=== PATIENT | male | born 1945 | race African-American/Black ===

== ENCOUNTER 2022-03-23 10:12 | Inpatient (IN) | payer MEDICARE, OTHER ==
[2022-03-23] MEDS ORDERED: Ipratropium/Albuterol 3 ML NEB ONE ×2 (11:05→11:22)
[2022-03-23] MEDS ORDERED: Magnesium 2 GM/50 ML BAG (IN WATER) ONE (11:09)
[2022-03-23] MEDS ORDERED: methylPREDNISolone Sod Succ/PF 125 MG/2 ML VIAL ONE (11:09)
[2022-03-23 11:53] LABS: #Basophils 0.1 10x3/uL (0.0-0.2); #Monocytes 0.8 10x3/uL (0.0-1.1); #Neutrophils 5.4 10x3/uL (1.5-8.4); %Basophils 0.7 % (0.0-2.0); %Eosinophils 0.3 % (0.0-6.0); %Lymphocytes 17.6 % (18.0-47.0); %Monocytes 10.4 % (0.0-10.0); %Neutrophils 70.5 % (40.0-75.0); Hemoglobin 13.6 g/dL (13.5-17.5); Mean Corpuscular HGB CONC 34.5 g/dL (32.0-36.0); Mean Corpuscular Hemoglobin 30.8 pg (27.0-33.0); Mean Corpuscular Volume 89.3 fl (81.2-95.1); Mean Platelet Volume 11.3 fl (7.4-10.4); Platelet Count 182 10x3/uL (150-450); RBC Distribution Width 13.3 % (11.5-14.5); Red Blood Cell (RBC) Count 4.41 10x6/uL (4.32-5.72); White Blood Cell (WBC) Count 7.7 10x3/uL (3.5-10.5)
[2022-03-23 12:04] LABS: ALT (SGPT) 11 U/L (8-55); AST (SGOT) 21 U/L (5-34); Albumin 4.5 g/dL (3.4-4.8); Alkaline Phosphatase 87 U/L (40-110); Anion Gap 21 mmol/L (10-20); BUN (Urea Nitrogen) 38 mg/dL (8.4-25.7); Bilirubin, Total 0.5 mg/dL (0.2-1.2); Calc. Creatinine Clearance 0 mL/min (70-130); Calcium 8.9 mg/dL (7.8-10.44); Carbon Dioxide 26 mmol/L (23-31); Chloride 95 mmol/L (98-107); Estimated GFR 11; Globulin 4.8 g/dL (2.4-3.5); Glucose 129 mg/dL (83-110); Potassium 4.9 mmol/L (3.5-5.1); Protein, Total 9.3 g/dL (5.8-8.1); Sodium 137 mmol/L (136-145)
[2022-03-23 12:23] LABS: CKMB 4.5 ng/mL (0-6.6)
[2022-03-23] MEDS ORDERED: cefTRIAXone\\ROCEPHIN 2 GM VIAL ONE (12:57)
[2022-03-23 13:08] LABS: SARS-CoV-2 NAA Rapid Test Not Detected (NotDetected)
[2022-03-23] MEDS ORDERED: Aspirin Chewable 81 MG TAB ONE (13:35)
[2022-03-23] MEDS ORDERED: Azithromycin 500 MG VIAL ONE (13:36)
[2022-03-23] MEDS ORDERED: HumaLOG 300 UNITS/3 ML VIAL SC PRN (14:16)
[2022-03-23] MEDS ORDERED: Nicotine 14 MG PATCH TD PRN (14:16)
[2022-03-23] MEDS ORDERED: Acetaminophen 325 MG TAB PO PRN (14:16)
[2022-03-23] MEDS ORDERED: Dextrose 5% in Water 1,000 ML IV PRN (14:16)
[2022-03-23] MEDS ORDERED: Dextrose 50% Abboject 50 ML SYRINGE SLOW IVP PRN (14:16)
[2022-03-23] MEDS ORDERED: Senokot S 8.6-50 MG TAB PO PRN (14:16)
[2022-03-23] MEDS ORDERED: Ondansetron ODT 4 MG TAB PO PRN (14:16)
[2022-03-23 14:58] LABS: Lactic Acid 3.8 mmol/L (0.5-2.2)
[2022-03-23 17:34] LABS: Actual Bicarbonate (HCO3v) 26 mEq/L (22-28); Chloride (VBG) 96 mmol/L (98-106); Hemoglobin (Hb) 13.5 g/dL (12.6-17.4); Potassium (VBG) 5.11 mmol/L (3.70-5.30); Puncture Site Other Site; RapidComm Collect By CBN; Sodium 133.7 mmol/L (133-146); pH (venous) 7.28 (7.32-7.43)
[2022-03-23] MEDS ORDERED: Furosemide 40 MG/4 ML VIAL ONE (17:59)
[2022-03-23] MEDS: Ipratropium/Albuterol 3 ML NEB NEB SCH (20:10)
[2022-03-23] MEDS: Furosemide 40 MG/4 ML VIAL SLOW IVP SCH (20:58)
[2022-03-23] MEDS: Heparin 5,000 UNITS/ML VIAL SC SCH ×2 (20:58→21:19)
[2022-03-23] MEDS: Famotidine 20 MG TAB PO SCH (21:18)
[2022-03-24] MEDS: methylPREDNISolone Sod Succ 40 MG VIAL IVP SCH ×5 (00:09→23:54)
[2022-03-24] MEDS: Ipratropium/Albuterol 3 ML NEB NEB SCH ×4 (01:10→19:50)
[2022-03-24 05:00] LABS: MDiff Complete? YES; Mean Corpuscular HGB CONC 34.5 g/dL (32.0-36.0); Mean Corpuscular Hemoglobin 30.4 pg (27.0-33.0); Mean Corpuscular Volume 88.1 fl (81.2-95.1); Mean Platelet Volume 11.3 fl (7.4-10.4); Platelet Count 162 10x3/uL (150-450); RBC Distribution Width 13.2 % (11.5-14.5); Red Blood Cell (RBC) Count 3.95 10x6/uL (4.32-5.72); White Blood Cell (WBC) Count 4.1 10x3/uL (3.5-10.5)
[2022-03-24 05:05] LABS: Anion Gap 19 mmol/L (10-20); BUN (Urea Nitrogen) 58 mg/dL (8.4-25.7); Calc. Creatinine Clearance 13 mL/min (70-130); Calcium 8.3 mg/dL (7.8-10.44); Carbon Dioxide 26 mmol/L (23-31); Chloride 97 mmol/L (98-107); Estimated GFR 8; Glucose 157 mg/dL (83-110); Magnesium 2.6 mg/dL (1.6-2.6); Potassium 5.4 mmol/L (3.5-5.1); Sodium 137 mmol/L (136-145)
[2022-03-24 05:23] LABS: Cardiac Risk 3.8 (Less than 4.5); Cholesterol 148 mg/dl (< 200 Desired); HDL Cholesterol 39 mg/dL (>60 Neg Risk); LDL Cholesterol, Calculated 93 mg/dL; Phosphorus 6.4 mg/dL (2.3-4.7); Triglycerides 80 mg/dL (Less than 150)
[2022-03-24 05:44] LABS: Band 6 % (5-11); Eosinophils 1 % (0-10); Lymphocytes 14 % (21-51); Monocytes 7 % (0-10); Neutrophil 71 % (42-75); Reactive Lymphocytes 1 % (0-10)
[2022-03-24 05:48] LABS: Anisocytosis SLIGHT = 6-15 cells (100X) (0-5/hpf); Macrocytosis SLIGHT = 6-15 cells (100X) (0-5/hpf); Microcytosis SLIGHT = 6-15 cells (100X) (0-5/hpf)
[2022-03-24 05:49] LABS: Giant Platelets SLIGHT; Platelet Morphology Comment Appears Adequate
[2022-03-24] MEDS: Furosemide 40 MG/4 ML VIAL SLOW IVP SCH ×2 (05:51→14:06)
[2022-03-24] MEDS ORDERED: Furosemide 40 MG/4 ML VIAL SLOW IVP SCH (06:00)
[2022-03-24] MEDS: Atorvastatin Calcium 20 MG TAB PO SCH (08:17)
[2022-03-24] MEDS: Lisinopril 5 MG TAB PO SCH (08:17)
[2022-03-24] MEDS: Heparin 5,000 UNITS/ML VIAL SC SCH ×3 (08:18→20:23)
[2022-03-24] MEDS ORDERED: FLU VACC QS2022-23(65YR UP)/PF 240 MCG/0.7 ML SYRINGE IM ONE (09:00)
[2022-03-24] MEDS: HumaLOG 300 UNITS/3 ML VIAL SC PRN (12:18)
[2022-03-24] MEDS: cefTRIAXone\\ROCEPHIN 1 GM in Sodium Chloride 0.9% 100 ML IVPB SCH (13:25)
[2022-03-24] MEDS: Azithromycin 500 MG in Sodium Chloride 0.9% 250 ML 250 ML IVPB SCH (14:06)
[2022-03-24 19:12] LABS: HBSAg Index 0.19 S/CO (0-0.99); Hep B Surf Ag Non-Reactive S/CO (NonReactive)
[2022-03-24] MEDS: Famotidine 20 MG TAB PO SCH (20:22)
[2022-03-24 23:35] LABS: HBSAB Concentration Less than 8.00 mIU/mL; Hep B Surf AB Non-Reactive (NonReactive); Hep C IgG Ab Non-Reactive (NonReactive)
[2022-03-25 01:37] LABS: Hep B Core Total Ab Reactive (NonReactive); Hep B Core Total Index 7.64 S/CO (0-0.79)
[2022-03-25] MEDS: Ipratropium/Albuterol 3 ML NEB NEB SCH ×4 (01:45→18:49)
[2022-03-25 04:29] LABS: Anion Gap 18 mmol/L (10-20); BUN (Urea Nitrogen) 60 mg/dL (8.4-25.7); Calc. Creatinine Clearance 13 mL/min (70-130); Calcium 8.2 mg/dL (7.8-10.44); Carbon Dioxide 26 mmol/L (23-31); Chloride 97 mmol/L (98-107); Estimated GFR 9; Glucose 166 mg/dL (83-110); Potassium 5.3 mmol/L (3.5-5.1); Sodium 136 mmol/L (136-145)
[2022-03-25 04:30] LABS: #Monocytes 0.3 10x3/uL (0.0-1.1); #Neutrophils 8.2 10x3/uL (1.5-8.4); %Basophils 0.2 % (0.0-2.0); %Lymphocytes 11.4 % (18.0-47.0); %Monocytes 2.7 % (0.0-10.0); %Neutrophils 85.3 % (40.0-75.0); Mean Corpuscular HGB CONC 34.5 g/dL (32.0-36.0); Mean Corpuscular Hemoglobin 30.3 pg (27.0-33.0); Mean Corpuscular Volume 87.9 fl (81.2-95.1); Mean Platelet Volume 11.7 fl (7.4-10.4); Platelet Count 174 10x3/uL (150-450); RBC Distribution Width 13.2 % (11.5-14.5); Red Blood Cell (RBC) Count 3.96 10x6/uL (4.32-5.72); White Blood Cell (WBC) Count 9.6 10x3/uL (3.5-10.5)
[2022-03-25] MEDS: methylPREDNISolone Sod Succ 40 MG VIAL IVP SCH ×3 (05:40→18:16)
[2022-03-25] MEDS: Furosemide 40 MG/4 ML VIAL SLOW IVP SCH ×2 (05:40→15:00)
[2022-03-25 06:40] VITALS: BMI 32.5
[2022-03-25] MEDS: Lisinopril 5 MG TAB PO SCH (08:24)
[2022-03-25] MEDS: Atorvastatin Calcium 20 MG TAB PO SCH (08:24)
[2022-03-25] MEDS: Heparin 5,000 UNITS/ML VIAL SC SCH ×3 (08:24→20:55)
[2022-03-25] MEDS: HumaLOG 300 UNITS/3 ML VIAL SC PRN ×2 (08:39→16:39)
[2022-03-25 10:34] VITALS: TEMP 99
[2022-03-25] MEDS ORDERED: cefTRIAXone\\ROCEPHIN 1 GM VIAL ONE (12:37)
[2022-03-25] MEDS: cefTRIAXone\\ROCEPHIN 1 GM in Sodium Chloride 0.9% 100 ML IVPB SCH (12:42)
[2022-03-25] MEDS: Azithromycin 500 MG in Sodium Chloride 0.9% 250 ML 250 ML IVPB SCH (17:30)
[2022-03-25] MEDS: Famotidine 20 MG TAB PO SCH (20:55)
[2022-03-26] MEDS: Ipratropium/Albuterol 3 ML NEB NEB SCH ×2 (01:46→07:45)
[2022-03-26 04:37] LABS: Anion Gap 19 mmol/L (10-20); BUN (Urea Nitrogen) 54 mg/dL (8.4-25.7); Calc. Creatinine Clearance 14 mL/min (70-130); Calcium 8.4 mg/dL (7.8-10.44); Carbon Dioxide 26 mmol/L (23-31); Chloride 99 mmol/L (98-107); Estimated GFR 10; Glucose 191 mg/dL (83-110); Potassium 4.7 mmol/L (3.5-5.1); Sodium 139 mmol/L (136-145)
[2022-03-26] MEDS: Furosemide 40 MG/4 ML VIAL SLOW IVP SCH (06:33)
[2022-03-26] MEDS ORDERED: glipiZIDE 5 MG TAB PO SCH (07:30)
[2022-03-26] MEDS ORDERED: predniSONE 20 MG TAB PO SCH (08:00)
[2022-03-26] MEDS: Heparin 5,000 UNITS/ML VIAL SC SCH (09:35)
[2022-03-26] MEDS: Lisinopril 5 MG TAB PO SCH (09:35)
[2022-03-26] MEDS: Atorvastatin Calcium 20 MG TAB PO SCH (09:35)
[2022-03-26 09:36] VITALS: BP 142/69
== END 2022-03-26 13:45 | disposition home or self-care (01) | DRG 193 ==
LOC: CSHERS 10:12 → CSHICU 20:16
PROVIDERS: ADMIT Family Medicine; ATTEND Family Medicine
PROC: 5A09457 Assistance with Respiratory Ventilation, 24-96 Consecutive Hours, Continuous Positive Airway Pressure (ICD-10-PCS; principal; 2022-03-23)
PROC: 5A1D70Z Performance of Urinary Filtration, Intermittent, Less than 6 Hours Per Day (ICD-10-PCS; 2022-03-23)
DX: J12.9 Viral pneumonia, unspecified (principal); I50.33 Acute on chronic diastolic (congestive) heart failure; N18.6 End stage renal disease; J96.01 Acute respiratory failure with hypoxia; I13.2 Hypertensive heart and chronic kidney disease with heart failure and with stage 5 chronic kidney disease, or end stage renal disease; J44.0 Chronic obstructive pulmonary disease with (acute) lower respiratory infection; N25.81 Secondary hyperparathyroidism of renal origin; J44.1 Chronic obstructive pulmonary disease with (acute) exacerbation; E11.22 Type 2 diabetes mellitus with diabetic chronic kidney disease; E78.5 Hyperlipidemia, unspecified; Z20.822 Contact with and (suspected) exposure to COVID-19; F17.210 Nicotine dependence, cigarettes, uncomplicated; E78.00 Pure hypercholesterolemia, unspecified; E87.5 Hyperkalemia; Z88.8 Allergy status to other drugs, medicaments and biological substances; Z79.899 Other long term (current) drug therapy; Z99.2 Dependence on renal dialysis; Z90.49 Acquired absence of other specified parts of digestive tract; Z98.890 Other specified postprocedural states
CPT/HCPCS: 36415; 36416; 70450; 71045; 80048; 80053; 80061; 82553; 82805; 83605; 83735; 83880; 84100; 84484; 85025; 86704; 87040; 90935; 93005; 93010; 93306; 94640; 94660; 94760; 96365; 96374; 96375; G0257; J0456; J0696; J1644; J1815; J1940; J2920; J2930; J3475; J3490; J7050; J7512; J7620

== ENCOUNTER 2024-01-04 09:04 | Outpatient (CLI) | payer OTHER ==
[2024-01-04 10:26] LABS: Actual Bicarbonate (HCO3a) 33.5 mEq/L (22-28); Analyzer IN Cardio CS ER; Base Excess (BEa) 4.9 mEq/L (-2.0 to +3.0); CO2 Tension 70.4 mmHg (35.0-45.0); Calcium, Ionized (arterial) 1.07 mmol/L (1.12-1.30); Carboxyhemoglobin (COHb) 1.7 gm% (0.0-3.0); Hematocrit-ABG 37 % (42.0-52.0); Hemoglobin (Hb) 12.6 g/dL (14.0-18.0); O2 Tension (PaO2), arterial 105.9 mmHg (> 70.0); Potassium - ABG Lab 4.85 mmol/L (3.70-5.30); Puncture Site Right Radial artery; pH, Arterial 7.295 (7.35-7.45)
== END 2024-01-04 09:05 | disposition home or self-care (01) ==
LOC: CSHCP 09:04
PROVIDERS: ATTEND Internal Medicine
DX: J44.9 Chronic obstructive pulmonary disease, unspecified (principal); I28.1 Aneurysm of pulmonary artery; J98.4 Other disorders of lung
CPT/HCPCS: 71250; 82330; 82375; 82805; 82947; 83605; 94060; 94664; 94726; 94729; 94760

== ENCOUNTER 2024-04-11 05:13 | Emergency (ER) | payer OTHER ==
[2024-04-11 06:12] LABS: Bilirubin Neg (Negative); Blood, Urine 250 (Negative); Clarity Bloody (Clear); Glucose, Urine (Dipstick) Normal (Negative); Ketone, Urine Negative (Negative); Leukocyte 500 (Negative); Nitrite Negative (Negative); Protein, Urine (Dipstick) 500 mg/dl (Neg-Trace); Specific Gravity, Urine 1.015 (1.005-1.030); Urobilinogen Normal mg/dL (Less than 2)
[2024-04-11 06:30] LABS: CAUTI Indications for Culture Acute Hematuria; RBC/HPF Greater than 50 HPF (0-3); WBC/HPF Greater Than 50 HPF (0-3)
[2024-04-11 06:32] LABS: Bacteria/HPF 3+ HPF (None Seen); Squamous Epithelial 0-3 HPF (0-3)
[2024-04-11 06:34] LABS: Urine Culture Reflex Yes Yes
== END 2024-04-11 06:45 | disposition home or self-care (01) ==
LOC: CSHERS 05:13
DX: N39.0 Urinary tract infection, site not specified (principal); I13.2 Hypertensive heart and chronic kidney disease with heart failure and with stage 5 chronic kidney disease, or end stage renal disease; I50.9 Heart failure, unspecified; N18.6 End stage renal disease; E11.22 Type 2 diabetes mellitus with diabetic chronic kidney disease; F17.210 Nicotine dependence, cigarettes, uncomplicated; J44.9 Chronic obstructive pulmonary disease, unspecified; E78.00 Pure hypercholesterolemia, unspecified; Z99.2 Dependence on renal dialysis; Z79.51 Long term (current) use of inhaled steroids
CPT/HCPCS: 81001; 87086; 99283

== ENCOUNTER 2024-11-01 19:23 | Emergency (ER) | payer OTHER ==
[2024-11-01 20:17] LABS: #Basophils Less than 0.03 10x3/uL (0.0-0.2); #Eosinophils Less than 0.03 10x3/uL (0.0-0.5); #Monocytes 0.10 10x3/uL (0.0-1.1); #Neutrophils 3.57 10x3/uL (1.5-8.4); %Basophils 0.2 % (0.0-2.0); %Eosinophils 0.0 % (0.0-6.0); %Lymphocytes 10.7 % (18.0-47.0); %Monocytes 2.4 % (0.0-10.0); %Neutrophils 86.5 % (40.0-75.0); Hematocrit 32.7 % (38.8-50.0); Hemoglobin 10.8 g/dL (13.5-17.5); Mean Corpuscular Hemoglobin 29.0 pg (27.0-33.0); Mean Corpuscular Volume 87.7 fL (81.2-95.1); Platelet Count 169 10x3/uL (150-450); Red Blood Cell (RBC) Count 3.73 10x6/uL (4.32-5.72); White Blood Cell (WBC) Count 4.13 10x3/uL (3.5-10.5)
[2024-11-01 20:34] LABS: ALT (SGPT) 12 U/L (Less than 45); AST (SGOT) 19 U/L (11-34); Albumin 3.4 g/dL (3.1-4.5); Alkaline Phosphatase 89 U/L (40-110); Anion Gap 17 mmol/L (10-20); BUN (Urea Nitrogen) 36 mg/dL (8.4-25.7); Bilirubin, Total 0.3 mg/dL (0.3-1.2); Calc. Creatinine Clearance 0 mL/min (70-130); Calcium 7.7 mg/dL (7.8-10.44); Carbon Dioxide 28 mmol/L (23-31); Chloride 98 mmol/L (98-107); Globulin 4.3 g/dL (2.4-3.5); Glucose 238 mg/dL (83-110); Magnesium 2.1 mg/dL (1.6-2.6); Potassium 5.1 mmol/L (3.5-5.1); Sodium 138 mmol/L (136-145)
[2024-11-01 20:35] LABS: Troponin I 0.038 ng/mL (< 0.028)
[2024-11-01] MEDS ORDERED: Furosemide 40 MG (4 mL) VIAL ONE (20:43)
[2024-11-01 20:52] LABS: INR-International Normal Ratio 1.0; PTT 30.6 sec (22.0-33.0); Prothrombin Time 10.7 sec (9.5-12.1)
[2024-11-01] MEDS ORDERED: Enoxaparin 80 MG (0.8 mL) SYRINGE ONE (21:55)
== END 2024-11-01 22:32 | disposition short-term general hospital (02) ==
LOC: CSHERS 19:23
DX: I13.2 Hypertensive heart and chronic kidney disease with heart failure and with stage 5 chronic kidney disease, or end stage renal disease (principal); E11.22 Type 2 diabetes mellitus with diabetic chronic kidney disease; N18.6 End stage renal disease; I50.9 Heart failure, unspecified; I82.401 Acute embolism and thrombosis of unspecified deep veins of right lower extremity; G54.3 Thoracic root disorders, not elsewhere classified; J44.9 Chronic obstructive pulmonary disease, unspecified; F17.210 Nicotine dependence, cigarettes, uncomplicated; Z99.2 Dependence on renal dialysis
CPT/HCPCS: 71045; 80053; 83605; 83735; 83880; 84484; 85025; 85610; 85730; 93005; 96372; 96374; 99285; J1650; J1940; 36415